=== PATIENT | female | born 1985 | race African-American/Black ===

== ENCOUNTER 2023-06-18 22:53 | Emergency (ER) | payer OTHER ==
[2023-06-18 23:04] VITALS: BP 120/82; PULSE 83; RESP 20; TEMP 99.2; BMI 39.1
[2023-06-18] MEDS: ACETAMINOPHEN 325 MG TABLET (FP) PO ONE (23:43)
== END 2023-06-19 00:52 | disposition home or self-care (01) ==
LOC: JER 22:53
DX: R50.9 Fever, unspecified (principal); R53.83 Other fatigue; R53.81 Other malaise
CPT/HCPCS: 71046-TC-FY; 99283-25